=== PATIENT | female | born 2000 | race Caucasian/White ===

== ENCOUNTER 2021-05-01 07:50 | Emergency (ER) | payer OTHER, BC ==
[~2021-05-01] VITALS: Ht 165.1 cm; Wt 102.1 kg
[2021-05-01] VITALS (9 sets, daily range): BP systolic 110–130; BP diastolic 54–88
[~2021-05-01 07:50] MED LIST: AMOXICILLIN500 MG PO; AMOXIL250 MG/5 M PO; AUGMENTIN ES-6050 ML PO; CELEBREX200 MG PO; CIPRODEX 0.3%-7.5 ML OT; CLARITIN5 MG/5 ML PO; CONCERTA54 MG PO; DARVOCET N 1001 TAB PO; KEFLEX250 MG/5 M PO; MIRALAX POWDER17 G1 PO; NAPROSYN250 MG PO; PREDNICOT20 MG PO; SERTRALINE HYDR50 MG PO
[2021-05-01] MEDS ORDERED: BUPROPION HYDR150 M3 PO (08:07)
[2021-05-01] MEDS ORDERED: DEXTROAMP SAC-AM5 MG PO (08:07)
[2021-05-01] MEDS ORDERED: FLUOXETINE HCL40 MG PO (08:08)
[2021-05-01 08:54] LABS: BASO # 0.1 10*3/uL (0.0-0.1); BASO % 0.3 % (0.0-1.0); EOS # 0.1 10*3/uL (0.0-0.4); EOS % 0.2 % (1.0-4.0); HEMATOCRIT 43.8 % (37.0-47.0); LYMPH # 2.8 10*3/uL (1.3-4.4); LYMPH % 13.9 % (27.0-41.0); MEAN CELL VOLUME 89.2 fl (81.0-99.0); MEAN CORPUSCULAR HGB 29.5 pg (27.0-31.0); MEAN CORPUSCULAR HGB CONC 33.1 g/dl (33.0-37.0); MEAN PLATELET VOLUME 9.1 fl (9.6-12.3); NEUT % 79.7 % (47.0-73.0); PLATELET COUNT AUTOMATED 414 10*3/uL (130-400); RED BLOOD COUNT 4.91 10*6/uL (4.10-5.10); RED CELL DISTRI WIDTH 12.8 % (0-14.5); WHITE BLOOD COUNT 20.1 10*3/uL (4.8-10.8)
[2021-05-01 09:10] LABS: ALBUMIN 4.1 gm/dl (3.1-4.5); ALKALINE PHOSPHATASE 77 U/L (45-117); BUN 15 mg/dl (7-24); CHLORIDE 106 mmol/L (98-107); CREATININE 0.93 mg/dL (0.55-1.02); POTASSIUM 3.9 mmol/L (3.5-5.1); SGOT/AST 41 IU/L (3-35); SGPT/ALT 54 U/L (12-78); SODIUM 137 mmol/L (136-145); TOTAL PROTEIN 8.3 gm/dL (6.4-8.2)
[2021-05-01 09:12] LABS: B-hCG (QUALITATIVE) NEGATIVE (NEGATIVE)
[2021-05-02] MEDS ORDERED: METFORMIN XR500 MG PO (15:05)
== END 2021-05-01 19:16 | disposition home or self-care (01) ==
LOC: ED 07:50 → EDHOLD 13:22 → ED 13:22
PROVIDERS: Emergency Medicine
DX: S92.512A Displaced fracture of proximal phalanx of left lesser toe(s), initial encounter for closed fracture (principal); S49.91XA Unspecified injury of right shoulder and upper arm, initial encounter; S61.412A Laceration without foreign body of left hand, initial encounter; S61.411A Laceration without foreign body of right hand, initial encounter; S20.212A Contusion of left front wall of thorax, initial encounter; S40.012A Contusion of left shoulder, initial encounter; S30.811A Abrasion of abdominal wall, initial encounter; S06.0X1A Concussion with loss of consciousness of 30 minutes or less, initial encounter; Z79.899 Other long term (current) drug therapy; V89.2XXA Person injured in unspecified motor-vehicle accident, traffic, initial encounter; Y93.I9 Activity, other involving external motion; Y92.488 Other paved roadways as the place of occurrence of the external cause; Y99.8 Other external cause status

== ENCOUNTER 2021-05-01 07:50 | Day surgery (SDC) | payer OTHER, BC ==
[~2021-05-01] VITALS: Ht 165.1 cm; Wt 96.2 kg
[2021-05-01] MEDS ORDERED: BUPROPION HYDR150 M3 PO (08:07)
[2021-05-01] MEDS ORDERED: DEXTROAMP SAC-AM5 MG PO (08:07)
[2021-05-01] MEDS ORDERED: FLUOXETINE HCL40 MG PO (08:08)
[2021-05-02] MEDS ORDERED: METFORMIN XR500 MG PO (15:05)
[2021-05-03] MEDS ORDERED: XARELTO10 MG PO (15:09)
[2021-05-03] MEDS ORDERED: TRAMADOL HCL50 MG PO (15:09)
[2021-05-03 15:20] VITALS: BP 114/74
[2021-05-03 15:34] VITALS: BP 119/76
[2021-05-03 15:49] VITALS: BP 124/74
[2021-05-03 16:05] VITALS: BP 113/71
[2021-05-03 16:20] VITALS: BP 115/65
== END 2021-05-03 | disposition home or self-care (01) ==
LOC: SDC 18:00
PROVIDERS: ATTEND Podiatrist
DX: S91.105A Unspecified open wound of left lesser toe(s) without damage to nail, initial encounter (principal); S92.592A Other fracture of left lesser toe(s), initial encounter for closed fracture; S96.112A Strain of muscle and tendon of long extensor muscle of toe at ankle and foot level, left foot, initial encounter; F41.9 Anxiety disorder, unspecified; F32.9 Major depressive disorder, single episode, unspecified; E28.2 Polycystic ovarian syndrome; F90.9 Attention-deficit hyperactivity disorder, unspecified type; X58.XXXA Exposure to other specified factors, initial encounter; Y93.89 Activity, other specified; Y92.89 Other specified places as the place of occurrence of the external cause; Y99.8 Other external cause status